=== PATIENT | male | born 2000 | race Caucasian/White ===

== ENCOUNTER 2021-12-29 23:59 | Emergency (ER) | payer OTHER ==
[~2021-12-29] VITALS: Ht 190.5 cm; Wt 95.3 kg
[2021-12-29 23:59] VITALS: BP 124/70
--- NOTE | 2021-12-29 23:59 | NUR ---
PATRICIA FROM HOME WITH INGESTION OF METH AND FENTANYL 1400HOURS.
--- NOTE | 2021-12-30 00:10 | NUR ---
HE WAS HUNGRY AND THRISTY , WATER, JUICE, AND SANDWICH WAS GIVEN.
--- NOTE | 2021-12-30 00:20 | NUR ---
SEEN AND EXAMINED BY HERO.
--- NOTE | 2021-12-30 00:38 | NUR ---
pt assessment completed by anuja, no nursing interventions required at this time.
[2021-12-30 00:50] VITALS: BP 120/78
--- NOTE | 2021-12-30 00:50 | NUR ---
Patient discharged with v/s stable. Written and verbal after care instructions given and explained. Patient verbalized understanding. Ambulatory with steady gait. All questions addressed prior to discharge. Advised to follow up with PMD.
== END 2021-12-30 00:50 | disposition home or self-care (01) ==
LOC: MED 23:59
DX: F19.90 Other psychoactive substance use, unspecified, uncomplicated (principal); F15.90 Other stimulant use, unspecified, uncomplicated; F12.90 Cannabis use, unspecified, uncomplicated; F17.200 Nicotine dependence, unspecified, uncomplicated
CPT/HCPCS: 99283

== ENCOUNTER 2022-03-31 20:16 | Emergency (ER) | payer OTHER ==
[~2022-03-31] VITALS: Ht 188 cm; Wt 85.7 kg
[2022-03-31 20:16] VITALS: BP 145/64
--- NOTE | 2022-03-31 20:23 | NUR ---
PT PATRICIA ALS. TAKEN TO BED 2
--- NOTE | 2022-04-01 01:58 | NUR ---
Dr. Gates examining patient.
--- NOTE | 2022-04-01 02:10 | NUR ---
Pt alert, [id number]. Pt provided mothers phone number. [phone]. Pt requesting to be picked up. Mother called, she will shredder picker pt in approx 20mins.
--- NOTE | 2022-04-01 02:19 | NUR ---
Pt ambulated to restroom with steady gait.
--- NOTE | 2022-04-01 02:19 | NUR ---
Security called for clothing.
[2022-04-01 02:29] VITALS: BP 128/80
== END 2022-04-01 02:30 | disposition home or self-care (01) ==
LOC: MED 20:16
DX: R45.1 Restlessness and agitation (principal); F15.10 Other stimulant abuse, uncomplicated
CPT/HCPCS: 99285

== ENCOUNTER 2022-08-19 21:46 | Emergency (ER) | payer OTHER ==
[~2022-08-19] VITALS: Ht 177.8 cm; Wt 84.8 kg
--- NOTE | 2022-08-19 21:51 | NUR ---
PT BROUGHT TO BED 5 VIA [facility]
[2022-08-19] MEDS ORDERED: LORazepam 2 MG/ML VIAL IM ONE (22:00)
[2022-08-19] MEDS ORDERED: NACL 0.9% 2,000 ML IV ONE (22:00)
--- NOTE | 2022-08-19 22:03 | NUR ---
BIBA for meth overdose. pt agitated and confused. tachycardic.
--- NOTE | 2022-08-19 22:03 | NUR ---
Patient in [facility], on monitor.
[2022-08-19] MEDS ORDERED: HALOPERIDOL IM 5 MG/ML VIAL IM ONE (22:05)
[2022-08-19] MEDS ORDERED: NACL 0.9% 1,000 ML IV ONE (22:40)
[2022-08-19 22:57] LABS: BASOPHILS % (AUTO) 0.3 % (0.0-2.0); EOSINOPHILS # (AUTO) 0.2 K/uL (0-0.4); EOSINOPHILS % (AUTO) 1.4 % (0.0-4.0); HEMATOCRIT 35.3 % (36-52); LYMPHOCYTES # (AUTO) 0.9 K/uL (2.0-11.5); LYMPHOCYTES % (AUTO) 6.4 % (20.5-51.1); MEAN CORPUSCULAR HEMOGLOBIN 30 pg (27-31); MEAN CORPUSCULAR HGB CONC 34 g/dL (33-37); MEAN CORPUSCULAR VOLUME 87.9 fL (80-94); MONOCYTES # (AUTO) 0.8 K/uL (0.8-1.0); MONOCYTES % (AUTO) 5.7 % (1.7-9.3); NEUTROPHILS # (AUTO) 11.6 K/uL (1.8-7.7); NEUTROPHILS % (AUTO) 86.2 % (42.2-75.2); PLATELET COUNT (AUTO) 270 K/uL (140-450); RED BLOOD CELL COUNT(AUTO) 4.02 MIL/uL (4.20-6.10); RED CELL DISTRIBUTION WIDTH 14.1 % (11.6-13.7); WHITE BLOOD COUNT (AUTO) 13.5 K/uL (4.8-10.8)
[2022-08-19 23:18] LABS: ACETAMINOPHEN < 0.5 ug/ml (10-30); ANION GAP 14.5 (8-16); ASPARTATE AMINOTRANSFERASE 53 U/L (15-37); CARBON DIOXIDE 27.8 mmol/L (21-32); CHLORIDE 105 mmol/L (98-107); GFR ARICAN-AMERICAN 119 mL/min (>90); GLUCOSE 123 mg/dL (74-106); POTASSIUM 3.3 mmol/L (3.5-5.1); SALICYLATE < 2.8 mg/dL (2.8-20.0); SODIUM SERUM 144 mmol/L (136-145); TOTAL BILIRUBIN 0.5 mg/dL (0.0-1.0); UREA NITROGEN, BLOOD 15 mg/dL (7-18)
[2022-08-20 00:30] LABS: BARBITURATE, URINE NEGATIVE ng/ml (NEG <=200); BENZODIAZEPINE, URINE NEGATIVE ng/mL (NEG <=200); CANNABINOID, URINE POSITIVE ng/mL (NEG <=50); COCAINE, URINE NEGATIVE ng/mL (NEG <=300); OPIATE, URINE NEGATIVE ng/mL (NEG <=2000); PHENCYCLIDINE SCREEN,URINE NEGATIVE ng/mL (NEG <=25)
--- NOTE | 2022-08-20 00:59 | NUR ---
Pt noted resting comfortably at this time. VSS.
--- NOTE | 2022-08-20 04:37 | NUR ---
VSS. Pt resting, no s/s discomfort. no s/s distress.
[2022-08-20 06:41] VITALS: BP 115/75
--- NOTE | 2022-08-20 13:31 | NUR ---
LATE ENTRY -- CONFIRMED WITH NURSE NS INFUSION COMPLETED AT 2330 08/19/22 AND 2ND INFUSION COMPLETED AT 0016 08/20/22
== END 2022-08-20 06:05 | disposition home or self-care (01) ==
LOC: MED 21:46
DX: F15.129 Other stimulant abuse with intoxication, unspecified (principal); R41.82 Altered mental status, unspecified
CPT/HCPCS: 36415; 70450; 80053; 80305; 85025; 96360; 96361; 96372; 99291; G0480; G0482; J1630; J2060; J7030

== ENCOUNTER 2023-09-17 21:05 | Emergency (ER) | payer MEDICAID, OTHER ==
[2022-08-20 06:41] VITALS: TEMP 98.1
[~2023-09-17] VITALS: Ht 185.4 cm; Wt 90.7 kg
[2023-09-17 21:16] VITALS: O2SAT 94
[2023-09-17 21:17] VITALS: PULSE 119; RESP 20; O2SAT 97
[2023-09-17] MEDS ORDERED: LORazepam 2 MG/ML VIAL IM ONE (21:20)
[2023-09-17] MEDS: LORazepam 1 MG TAB PO ONE (22:02)
== END 2023-09-17 21:47 | disposition left against medical advice (07) ==
LOC: MED 21:05
DX: F15.10 Other stimulant abuse, uncomplicated (principal); F41.9 Anxiety disorder, unspecified
CPT/HCPCS: 99283

== ENCOUNTER 2024-01-04 20:26 | Emergency (ER) | payer MEDICAID ==
[~2024-01-04] VITALS: Ht 177.8 cm; Wt 81.6 kg
[2024-01-04 20:37] VITALS: BP 152/80; PULSE 106; RESP 22; TEMP 97.4; O2SAT 99
[2024-01-04 20:45] VITALS: BP 152/80; PULSE 106; RESP 22; TEMP 97.4; O2SAT 99
== END 2024-01-04 23:02 | disposition left against medical advice (07) ==
LOC: MED 20:26
DX: F15.129 Other stimulant abuse with intoxication, unspecified (principal); T40.415A Adverse effect of fentanyl or fentanyl analogs, initial encounter; Y92.89 Other specified places as the place of occurrence of the external cause
CPT/HCPCS: 99283